=== PATIENT | male | born 1980 | race Caucasian/White ===

== ENCOUNTER → 2016-05-13 | Outpatient (CLI) | payer MEDICARE ==
[~2016-05-13] MED LIST: COUMADIN ** IA5 MG PO; COUMADIN **IA7.5 MG PO; DESYREL100 MG PO; FLEXERIL10 MG PO; GLUCOPHAGE500 MG PO; LATUDA60 MG PO; LIPITOR10 M1 PO; OXYCONTIN EXTEN40 MG PO; PRINIVIL (ZESTR20 MG PO; PROZAC20 MG PO; TRIFLUOPERAZINE PO; XANAX1 MG PO
== END | disposition disaster alternative care site (69) ==
LOC: GDIC 10:59
DX: E11.9 Type 2 diabetes mellitus without complications (principal)
CPT/HCPCS: G0108

== ENCOUNTER → 2016-05-18 | Outpatient (CLI) | payer MEDICARE | END | disposition disaster alternative care site (69) | LOC: GNUT 12:52 | DX: E11.9 Type 2 diabetes mellitus without complications (principal) ==

== ENCOUNTER → 2016-07-09 | Outpatient (CLI) | payer MEDICARE ==
[2016-07-09 14:55] LABS: INR - (THERAPEUTIC) 2.32 (0.92-1.07); PROTIME 24.6 SECONDS (9.8-11.4)
== END | disposition disaster alternative care site (69) ==
LOC: GLAB 06-01 08:00
PROVIDERS: Family Medicine
DX: I82.409 Acute embolism and thrombosis of unspecified deep veins of unspecified lower extremity (principal)

== ENCOUNTER → 2016-08-16 | Outpatient (CLI) | payer MEDICARE, MEDICAID ==
--- NOTE | ~2016-08-16 | ENPV ---
Vascular Lower Extremities DVT Study Procedure Demographics Patient Name ANITHA, Date of Study 08/16/2016 PEMA Cali Patient Number [id number] Gender Male Date of 1980 Age 35 Visit Number [id number] Height Accession Number [id number] Weight Room Number BSA BMI Referring Jasen Luke Aquino MD Physician Jhonny Garcia MD Physician Physician Ordering Jhonny Garcia [employer] Physician Nursing Coordinator Lilliana Navarro T, [facility] Conclusions Summary No evidence of deep vein thrombosis or superficial thrombophlebitis in the right lower extremity . Procedure Type of Study: Veins:Lower Extremities DVT Study, Lower Extremity Right. Indications for Study:Pain. Appropriate Use Criteria:6 Patient Status:Routine. Study Location:Vascular Lab. Technical Quality:Adequate visualization. Velocities are measured in cm/s ; Diameters are measured in cm Right Lower Extremities DVT Study Measurements Right 2D and Doppler Measurements + + + + +------+------+ + !Location !Visualized!Compressibility!Thrombosis!Signal!Reflux!Reflux ! ! ! ! ! ! ! !(sec) ! + + + + +------+------+ + !GSV Thigh !Yes !Yes !None !Phasic! ! ! + + + + +------+------+ + !Common !Yes !Yes !None !Phasic! ! ! !Femoral ! ! ! ! ! ! ! + + + + +------+------+ + !Prox !Yes !Yes !None !Phasic! ! ! !Femoral ! ! ! ! ! ! ! + + + + +------+------+ + !Mid Femoral!Yes !Yes !None !Phasic! ! ! + + + + +------+------+ + !Dist !Yes !Yes !None !Phasic! ! ! !Femoral ! ! ! ! ! ! ! + + + + +------+------+ + !Popliteal !Yes !Yes !None !Phasic! ! ! + + + + +------+------+ + !PTV !Yes !Yes !None !Phasic! ! ! + + + + +------+------+ + !Peroneal !Yes !Yes !None !Phasic! ! ! + + + + +------+------+ + Left Lower Extremities DVT Study Measurements Left 2D and Doppler Measurements + + + + +------+------+ + !Location !Visualized!Compressibility!Thrombosis!Signal!Reflux!Reflux ! ! ! ! ! ! ! !(sec) ! + + + + +------+------+ + !GSV Thigh !Yes !Yes !None !Phasic! ! ! + + + + +------+------+ + !Common !Yes !Yes !None !Phasic! ! ! !Femoral ! ! ! ! ! ! ! + + + + +------+------+ + Signature dtt: GENE FRIEND dtcompa: 08/16/16 1343 Physician Self Edit
== END | disposition disaster alternative care site (69) ==
LOC: GRAD 13:46
DX: M79.661 Pain in right lower leg (principal)